=== PATIENT | female | born 1990 | race Caucasian/White ===

== ENCOUNTER → 2024-08-08 13:32 | Outpatient (REF) | payer OTHER, SELFPAY | LOC: PNTC 13:32 | PROVIDERS: ATTENDING PHYSICIAN Obstetrics & Gynecology | DX: Z36.0 Encounter for antenatal screening for chromosomal anomalies (principal); Z36.82 Encounter for antenatal screening for nuchal translucency | CPT/HCPCS: 76801; 76813 ==

== ENCOUNTER 2025-02-07 05:47 | Inpatient (IN) | payer OTHER, SELFPAY ==
[2025-02-07 06:06] VITALS: BP 132/75; BMI 26.0
[2025-02-07 06:40] LABS: Hematocrit 37.6 % (37.0-47.0); Hemoglobin 13.1 g/dL (12.0-16.0); Mean Corp Hgb Conc. 34.8 g/dL (33.0-37.0); Mean Corpuscular Volume 89.3 fL (81.0-99.0); Platelet Count 165 10^3/uL (130-400); Red Cell Dist. Width 13.1 % (11.5-14.5)
[2025-02-07] MEDS: TYLENOL 975 MG PO (06:58)
[2025-02-07] MEDS: BICITRA 30 ML PO (07:04)
[2025-02-07] MEDS: CLEOCIN 50 IV (07:54)
[2025-02-07] MEDS: GENTAMICIN 59 MG IV (08:03)
[2025-02-07] MEDS: PITOCIN 30 UNITS/NSS 500 ML IV (09:00)
[2025-02-07] MEDS: LR 1000 IV (09:00)
[2025-02-07] MEDS: TORADOL 15 MG IV ×2 (14:37→21:11)
[2025-02-07] MEDS: COLACE 100 MG PO (19:58)
[2025-02-08 04:48] LABS: Hematocrit 36.3 % (37.0-47.0); Hemoglobin 12.6 g/dL (12.0-16.0); Mean Corp Hgb Conc. 34.7 g/dL (33.0-37.0); Mean Corpuscular Volume 92.4 fL (81.0-99.0); Platelet Count 160 10^3/uL (130-400); Red Cell Dist. Width 13.1 % (11.5-14.5)
[2025-02-08] MEDS: TORADOL 15 MG IV ×2 (05:36→09:01)
[2025-02-08] MEDS: PRENATAL PLUS 1 TABLET PO (07:52)
[2025-02-08] MEDS: COLACE 100 MG PO (07:52)
[2025-02-08] MEDS: TYLENOL 650 MG PO (14:46)
[2025-02-08] MEDS: MOTRIN 600 MG PO (14:46)
--- NOTE | 2025-02-08 17:39 | W.PN.ANS.POP ---
Anesthesia Post Operative
- Anesthesia Post Op Note
Vital Signs Stable-See Nursing Note: Yes
Airway Patent: Yes
Adequate Pain Control: Yes
Change in Mental Status: No
Current Postoperative Nausea & Vomiting: No
Anesthesia Complications: No
General Anesthetic Recall: No
Unplanned Admission: No
Post Op Hydration Adequate: Yes
[2025-02-10 13:43] LABS: Syphilis/T. pallidum Ab Reflex Negative (Negative)
== END 2025-02-08 18:00 | disposition home or self-care (01) | DRG 788 ==
LOC: LDRP 05:47
PROVIDERS: ADMITTING PHYSICIAN Obstetrics & Gynecology
PROC: 10D00Z1 Extraction of Products of Conception, Low, Open Approach (ICD-10-PCS; 2025-02-07)
DX: O34.211 Maternal care for low transverse scar from previous cesarean delivery (principal); N85.8 Other specified noninflammatory disorders of uterus; O69.81X0 Labor and delivery complicated by cord around neck, without compression, not applicable or unspecified; Z3A.39 39 weeks gestation of pregnancy; Z37.0 Single live birth
CPT/HCPCS: 85027; 86780; 86850; 86900; 86901